=== PATIENT | female | born 2000 ===

== ENCOUNTER 2023-12-09 21:58 | Emergency (ER) | payer OTHER ==
[~2023-12-09] VITALS: Ht 160 cm; Wt 72.1 kg
[2023-12-09 23:03] LABS: Influenza A, PCR NEGATIVE (NEGATIVE); Influenza B, PCR NEGATIVE (NEGATIVE); Resp Syncytial Virus, PCR NEGATIVE (NEGATIVE); SARS-Cov-2 (COVID-19) PCR, MMC NEGATIVE (NEGATIVE)
== END 2023-12-10 01:07 | disposition home or self-care (01) ==
LOC: ER 21:58
PROVIDERS: Emergency Medicine
DX: J06.9 Acute upper respiratory infection, unspecified (principal); Z88.0 Allergy status to penicillin
CPT/HCPCS: 0241U; 71046; 99283-25

== ENCOUNTER 2024-04-05 09:31 | Emergency (ER) | payer OTHER ==
[~2024-04-05] VITALS: Ht 160 cm; Wt 69.4 kg
[2024-04-05 11:47] LABS: Albumin, Blood 3.8 g/dL (3.4-5.0); Albumin/Globulin Ratio 0.9 (0.8-1.8); Bilirubin, Total 0.5 mg/dL (0.1-1.0); Bun/Creatinine Ratio 18.4 (12.0-20.0); Calcium, Blood 9.5 mg/dL (8.5-10.1); Creatinine, Blood 0.65 mg/dL (0.40-1.00); Globulin, Blood 4.1 g/dL (2.2-4.0); Potassium, Blood 4.3 mmol/L (3.5-5.5); Total Protein, Blood 7.9 g/dL (6.4-8.2)
== END 2024-04-05 16:17 | disposition home or self-care (01) ==
LOC: ER 09:31
PROVIDERS: Student in an Organized Health Care Education/Training Program
DX: S00.83XA Contusion of other part of head, initial encounter (principal); Y04.8XXA Assault by other bodily force, initial encounter; Z88.0 Allergy status to penicillin
CPT/HCPCS: 80053; 99284

== ENCOUNTER 2024-06-12 15:18 | Emergency (ER) | payer OTHER ==
[~2024-06-12] VITALS: Ht 160 cm; Wt 74.4 kg
== END 2024-06-12 17:10 | disposition home or self-care (01) ==
LOC: ER 15:18
DX: S06.0X0A Concussion without loss of consciousness, initial encounter (principal); W22.8XXA Striking against or struck by other objects, initial encounter; Z88.0 Allergy status to penicillin
CPT/HCPCS: 70450; 99283-25

== ENCOUNTER → 2024-11-08 | Outpatient (CLI) | payer OTHER ==
[2024-11-08 15:44] LABS: Candida Group, PCR NOT DETECTED (NOT DETECT); Candida glabrata-krusei, PCR NOT DETECTED (NOT DETECT)
[2024-11-08 15:49] LABS: Bacterial Vaginosis PCR Positive (NEGATIVE)
[2024-11-08 16:08] LABS: Chlamydia Trachomatis Vaginal NOT DETECTED (NOT DETECT); Neisseria Gonorrhoea Vaginal NOT DETECTED (NOT DETECT)
[2024-11-10 08:09] LABS: HIV 1,2 COMBO ANTIGEN/ANTIBODY Negative (Negative)
[2024-11-10 23:32] LABS: TREPONEMA PALLIDUM AB BY TP-PA Non Reactive (Non Reactive)
== END ==
LOC: LAB 14:04 → LAB SHORT 14:04
PROVIDERS: Nurse Practitioner
DX: N89.8 Other specified noninflammatory disorders of vagina (principal); Z20.2 Contact with and (suspected) exposure to infections with a predominantly sexual mode of transmission
CPT/HCPCS: 81515; 86592; 86780; 87086; 87389; 87491; 87591